=== PATIENT | female | born 1980 | race Caucasian/White ===

== ENCOUNTER 2017-01-27 05:12 | Emergency (ER) | payer BC ==
[2017-01-27] MEDS ORDERED: Sodium Chloride 0.9% 10 ML Syringe FLUSH PRN (05:33)
--- NOTE | 2017-01-27 05:33 | EDM.PDOC ---
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 She states she was in the ER in [place] on Tuesday for the same reason with mostly negative results from ultrasound for any acute causation of the above mentioned bleeding. 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 She has been on Xarelto since. She is not on any control. Menstrual cycle is typically pretty bloody and irregular. She does state she was dizzy this morning when she awakened. Her phys asst is aware that this happened on Tuesday. Again, similar symptomology to her prior episode. Does appear anxious. Stable vital signs and oxygenation. No complaints of abdominal pain. Recently started on methotrexate for psoriatic arthritis, with complaints of diarrhea. Denies any bloody stool. Symptom Onset Date: 01/27/17 Location: Reports: vaginal Quality: Denies: ache, burning, cramping Severity: mild Associated Symptoms: Reports: vaginal bleeding, diarrhea (recently started on methotrexate) - Related Data Allergies/ADRs: Allergies Allergy/AdvReac Type Severity Reaction Status Date / Time adhesive Allergy Rash Verified 01/27/17 05:23 Home Meds: Home Meds Calcium Carbonate/Vitamin D3 [Calcium Carb 500 MG] 1 tab PO DAILY 07/02/16 [ History] Hydrocodone/Acetaminophen [[place] 10-325] 1 tab PO Q6H PRN 07/02/16 [History] QUEtiapine [SEROquel] 25 mg PO BID@07/02/16 [History] QUEtiapine [SEROquel] 100 mg PO BEDTIME 07/02/16 [History] Rivaroxaban [Xarelto] 20 mg PO DAILY 07/02/16 [History] Venlafaxine HCl [Venlafaxine ER] 225 mg PO DAILY 07/02/16 [History] ED ROS GENERAL - Review of Systems Review Of Systems: See Below Constitutional: Reports: no symptoms HEENT: Reports: No symptoms Respiratory: Reports: no symptoms Cardiovascular: Reports: No symptoms Endocrine: Reports: no symptoms GI/Abdominal: Reports: No symptoms : Reports: irregular menses (high flow) Musculoskeletal: Reports: no symptoms Skin: Reports: no symptoms Neurological: Reports: no symptoms Psychiatric: Reports: No symptoms Hematologic/Lymphatic: Reports: easy bleeding Immunologic: Reports: no symptoms ED EXAM, RENAL/ - Physical Exam Exam: See Below Exam Limited By: No limitations General Appearance: alert, WD/WN, no apparent distress Eye Exam: bilateral eye: EOMI, PERRL Respiratory/Chest: no respiratory distress, lungs clear, normal breath sounds, no accessory muscle use Cardiovascular: normal peripheral pulses, regular rate, rhythm, no edema, no gallop GI/Abdominal: normal bowel sounds, soft, non tender, no organomegaly, no distention Back Exam: normal inspection Extremities: normal inspection, normal range of motion, non-tender, no pedal edema, normal capillary refill Neurological: alert, oriented, CN II-XII intact, normal cognition, normal gait, normal reflexes, no motor/sensory deficits Psychiatric: normal affect, normal mood Skin Exam: Warm, Dry, Intact, Normal color Lymphatic: no adenopathy Course - Vital Signs Last Recorded V/S: Last Vital Signs Temp 36.5 C 01/27/17 05:13 Pulse 72 01/27/17 05:13 Resp 24 H 01/27/17 05:13 BP 137/92 H 01/27/17 05:13 Pulse Ox 99 01/27/17 05:13 - Orders/Labs/Meds Orders: Active Orders 24 hr Category Date Time Status CBC WITH AUTO DIFF [HEME] Stat Lab 01/27/17 05:22 Ordered HCG QUALITATIVE,URINE [URCHEM] Stat Lab 01/27/17 05:22 Uncollected Departure - Departure Time of Disposition: 06:31 Disposition: Home, Self-Care 01 Clinical Impression: Vaginal bleeding Instructions: Abnormal Uterine Bleeding, Anemia, Nonspecific Forms: ED Department Discharge Additional Instructions: Please make an appointment with your SIGHTSEEING GUIDE to address possible solutions to your abnormal flow menstrual cycle. Your diarrhea is likely being caused by your recent start of methotrexate. All of your labs today did come back normal. Your Hemoglobin this AM was 13.5. HCG which is a marker is negative. Make sure to come back in to the ER if you continue to have large amounts of abnormal bleeding or show signs of low hemoglobin which can include dizziness and light headedness, fast heart rate, being short of breath. Please call with any questions or concerns - Problem List & Annotations (1) Vaginal bleeding SNOMED Code(s): 658469026, [id number] Code(s): N93.9 - ABNORMAL UTERINE AND VAGINAL BLEEDING, UNSPECIFIED Status : Acute Priority: Low Current Visit: Yes - Problem List Review Problem List Initiated/Reviewed/Updated: Yes - My Orders Last 24 Hours: My Active Orders 01/27/17 05:22 CBC WITH AUTO DIFF [HEME] Stat HCG QUALITATIVE,URINE [URCHEM] Stat - Assessment/Plan Last 24 Hours: My Active Orders 01/27/17 05:22 CBC WITH AUTO DIFF [HEME] Stat HCG QUALITATIVE,URINE [URCHEM] Stat Assessment:: abnormal vaginal bleeding Plan: Please make an appointment with your SIGHTSEEING GUIDE to address possible solutions to your abnormal flow menstrual cycle. Your diarrhea is likely being caused by your recent start of methotrexate. All of your labs today did come back normal. Your Hemoglobin this AM was 13.5. HCG which is a marker is negative. Make sure to come back in to the ER if you continue to have large amounts of abnormal bleeding or show signs of low hemoglobin which can include dizziness and light headedness, fast heart rate, being short of breath. Please call with any questions or concerns
[2017-01-27] MEDS ORDERED: Sodium Chloride 0.9% 1,000 ML IV ONE ×2 (05:55→06:10)
[2017-01-27 06:26] VITALS: BP 118/76
== END 2017-01-27 06:40 | disposition home or self-care (01) ==
LOC: VM.ED 05:12
DX: N93.9 Abnormal uterine and vaginal bleeding, unspecified (principal); Z79.899 Other long term (current) drug therapy
CPT/HCPCS: 36415; 81001; 81025; 85025; 85610; 99284; J7030

== ENCOUNTER 2017-02-22 22:56 | Emergency (ER) | payer BC ==
[2017-02-22] MEDS ORDERED: HYDROmorphone 1 MG/ML Syringe IVPUSH ONE ×2 (23:21→23:55)
[2017-02-22] MEDS ORDERED: Ondansetron 4 MG/2 ML SDV IM ONE (23:21)
[2017-02-22] MEDS ORDERED: Ondansetron 4 MG/2 ML SDV IVPUSH ONE (23:31)
[2017-02-22 23:49] LABS: CHLORIDE,CL 105 mmol/L (98-107); SODIUM,NA 141 mmol/L (136-145)
--- NOTE | 2017-02-22 23:53 | EDM.PDOC ---
ED HPI GI/ABDOMINAL - General Chief Complaint: Abdominal Pain Stated Complaint: Post-op Abdominal Pain Time Seen by Provider: 02/22/17 23:05 Source of Information: Reports: Patient History Limitations: Reports: No limitations - History of Present Illness INITIAL COMMENTS - FREE TEXT/NARRATIVE: Patient states she had a laparoscopic hysterectomy yesterday. She was discharged home after the surgery was complete without any complications. Today she started having increased abdominal pain. She started becoming able to burp and pass gas and urinate today. She denies any fever, shortness breath, chest pain, chills , changes in urination, and vaginal discharge. Her child accidentally fell and landed on her abdomen. She is concerned that stitches may have ruptured inside her abdomen causing her current pain. Symptom Onset Date: 02/22/17 Symptom Onset Time: 10:00 Timing/Duration: Reports: Getting worse Location: generalized Quality: Reports: ache, fullness, stabbing Severity: moderate Improves with: Reports: lying down Worsens with: Reports: urinating, palpation, sitting up Associated Symptoms (-Female): Reports: denies other symptoms Other Treatments [employer]: heat and cold packs - Related Data Allergies/ADRs: Allergies Allergy/AdvReac Type Severity Reaction Status Date / Time adhesive Allergy Rash Verified 02/22/17 23:47 Home Meds: Home Meds Calcium Carbonate/Vitamin D3 [Calcium Carb 500 MG] 1 tab PO DAILY 07/02/16 [ History] QUEtiapine [SEROquel] 25 mg PO BID@08,16 07/02/16 [History] QUEtiapine [SEROquel] 100 mg PO BEDTIME 07/02/16 [History] Rivaroxaban [Xarelto] 20 mg PO DAILY 07/02/16 [History] Venlafaxine HCl [Venlafaxine ER] 225 mg PO DAILY 07/02/16 [History] Hydrocodone/Acetaminophen [Hydrocodon-Acetaminophen 5-325] 2 each PO Q4H PRN [History] Past Medical History Respiratory History: Reports: PE 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 ED EXAM, GI/ABD - Physical Exam Exam: See Below Exam Limited By: No limitations General Appearance: alert, WD/WN, no apparent distress Eyes: bilateral: normal appearance, EOMI Head: atraumatic, normocephalic Neck: normal inspection, supple, non-tender, full range of motion Respiratory/Chest: no respiratory distress, lungs clear, normal breath sounds, no accessory muscle use, chest non-tender Cardiovascular: normal peripheral pulses, regular rate, rhythm, no edema, no gallop, no JVD, no murmur, no rub GI/Abdominal: normal bowel sounds, soft, tenderness (Generalized tenderness with light palpation. Steri-Strips and sutures in the areas of trocar sites intact there is no blood or shadowing on the dressings.), guarding Back Exam: normal inspection, full range of motion, NT Extremities: normal inspection, normal range of motion, non-tender, normal capillary refill, no pedal edema Neurological: alert, oriented, CN II-XII intact, normal cognition, normal gait, normal reflexes, no motor/sensory deficits Psychiatric: normal affect, normal mood Skin Exam: Warm, Dry, Intact, Normal color, No rash Lymphatic: no adenopathy Departure - Departure Time of Disposition: 00:00 Disposition: Home, Self-Care 01 Condition: good Clinical Impression: Postoperative abdominal pain - Assessment/Plan Assessment:: Postoperative abdominal pain 24 hours after a prescribed hysterectomy Plan: Continue home medication and pain meds. Followup with the surgeon who completed their operation if you continue to have severe abdominal pain and distention.
[2017-02-22 23:55] VITALS: BP 127/75
== END 2017-02-22 23:59 | disposition home or self-care (01) ==
LOC: VM.ED 22:56
DX: G89.18 Other acute postprocedural pain (principal); R10.9 Unspecified abdominal pain; K21.9 Gastro-esophageal reflux disease without esophagitis; F41.9 Anxiety disorder, unspecified; F32.9 Major depressive disorder, single episode, unspecified; Z79.899 Other long term (current) drug therapy
CPT/HCPCS: 80048; 85025; 96374; 96375; 99283; J1170; J2405

== ENCOUNTER 2017-02-28 12:21 | Emergency (ER) | payer BC ==
[2017-02-28 12:35] VITALS: BP 127/51
--- NOTE | 2017-02-28 12:42 | EDM.PDOC ---
ED HPI GI/ABDOMINAL - General Chief Complaint: Abdominal Pain Stated Complaint: constipation Time Seen by Provider: 02/28/17 12:32 Source of Information: Reports: Patient History Limitations: Reports: No limitations - History of Present Illness INITIAL COMMENTS - FREE TEXT/NARRATIVE: Patient had laparoscopic hysterectomy last Tuesday02/21/17 and has had one small , hard bowel movement on Tuesday. She has been ambulating, limiting her hydrocodone use. She states she is drinking 4-6 20 oz. water bottles daily as well. She admits to some shortness of breath due to the pressure of her abdomen which is distended. Denies chest pain, nausea, emesis. Denies smoking , drug, or alcohol use. Prior medical history does include pulmonary emboli and use of xarelto. Symptom Onset Date: 02/22/17 Timing/Duration: Reports: Gradual onset Location: generalized Quality: Reports: fullness Worsens with: Reports: palpation Context: Reports: recent surgery Associated Symptoms (-Female): Reports: constipation. Denies: chest pain, diarrhea, bloody stools, fever/chills, nausea/vomiting - Related Data Allergies/ADRs: Allergies Allergy/AdvReac Type Severity Reaction Status Date / Time adhesive Allergy Rash Verified 02/28/17 12:38 Home Meds: Home Meds Calcium Carbonate/Vitamin D3 [Calcium Carb 500 MG] 1 tab PO DAILY 07/02/16 [ History] QUEtiapine [SEROquel] 25 mg PO BID@,16 07/02/16 [History] QUEtiapine [SEROquel] 100 mg PO BEDTIME 07/02/16 [History] Rivaroxaban [Xarelto] 20 mg PO DAILY 07/02/16 [History] Venlafaxine HCl [Venlafaxine ER] 225 mg PO DAILY 07/02/16 [History] Hydrocodone/Acetaminophen [Hydrocodon-Acetaminophen 5-325] 2 each PO Q4H PRN [History] Past Medical History Respiratory History: Reports: PE 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 ED EXAM, GI/ABD - Physical Exam Exam: See Below Exam Limited By: No limitations General Appearance: alert, WD/WN, mild distress Eyes: bilateral: EOMI Head: atraumatic, normocephalic Neck: normal inspection Respiratory/Chest: no respiratory distress, lungs clear, normal breath sounds, no accessory muscle use, chest non-tender Cardiovascular: normal peripheral pulses, regular rate, rhythm, no edema, no gallop GI/Abdominal: normal bowel sounds, tenderness, distention Extremities: normal inspection Neurological: alert, oriented, CN II-XII intact Psychiatric: normal affect, normal mood Skin Exam: Warm, Dry, Intact, Ecchymosis (around umbilicus), Wound/incision ( umbilical, left and right inguinal puncture sites are clean, dry, intact, and approximated.) Course - Vital Signs Last Recorded V/S: Last Vital Signs Temp 37.2 C 02/28/17 12:32 Pulse 115 H 02/28/17 12:32 Resp 28 H 02/28/17 12:32 BP 127/51 L 02/28/17 12:32 Pulse Ox 98 02/28/17 12:32 - Orders/Labs/Meds Orders: Active Orders 24 hr Category Date Time Status Abdomen 2V AP Flat Upright [CR] Stat Exams 02/28/17 12:33 Taken Meds: Medications Discontinued Medications Generic Name Dose Route Start Last Admin Trade Name Franklinq PRN Reason Stop Dose Admin Magnesium Citrate 296 ml 02/28/17 13:20 02/28/17 13:34 Citrate Of Magnesia PO 02/28/17 13:21 296 ml ONETIME ONE Administration Senna 17.2 mg 02/28/17 14:08 02/28/17 14:22 Senna PO 02/28/17 14:09 17.2 mg ONETIME ONE Administration Sodium Biphosphate/Sodium Phosphate 133 ml 02/28/17 13:19 02/28/17 13:51 Fleet Enema RECTAL 02/28/17 13:20 1 each ONETIME ONE Administration - Re-Assessments/Exams Free Text/Narrative Re-Assessment/Exam: 02/28/17 13:24 Review of x-ray shows moderate colonic retention, treated with fleets and mag citrate Departure - Departure Time of Disposition: 14:40 Disposition: Home, Self-Care 01 Condition: good Clinical Impression: Constipation due to opioid therapy Instructions: Constipation, Adult, [id number], Pain Medicine Instructions, [id number] Referrals: PCP,None [Primary Care Provider] - Additional Instructions: Continue to try to stay well hydrated and limit the use of your pain medications as you are able. You should also add Senna or Colace/Docusate to your bowel protocol. Take 1 table twice daily Follow up with your surgeon if you continue to have constipation and distention issues. Please follow up with PCP and surgeon as needed Call with any questions or concerns. - Problem List & Annotations (1) Constipation due to opioid therapy SNOMED Code(s): 176432254657732 Code(s): K59.03 - DRUG INDUCED CONSTIPATION; T40.2X5A - ADVERSE EFFECT OF OTHER OPIOIDS, INITIAL ENCOUNTER Status: Acute Priority: Low Current Visit : Yes - Problem List Review Problem List Initiated/Reviewed/Updated: Yes - My Orders Last 24 Hours: My Active Orders 02/28/17 12:33 Abdomen 2V AP Flat Upright [CR] Stat - Assessment/Plan Last 24 Hours: My Active Orders 02/28/17 12:33 Abdomen 2V AP Flat Upright [CR] Stat Assessment:: constipation secondary to opioid use post operatively Plan: Continue to try to stay well hydrated and limit the use of your pain medications as you are able. You should also add Senna or Colace/Docusate to your bowel protocol. Take 1 table twice daily Follow up with your surgeon if you continue to have constipation and distention issues. Please follow up with PCP and surgeon as needed Call with any questions or concerns.
[2017-02-28] MEDS ORDERED: Sodium Phosphate,Monobasic/Sodium Phosphate,Dibasic Enema 133 ML Bottle RECTAL ONE (13:19)
[2017-02-28] MEDS ORDERED: Magnesium Citrate Solution 296 ML Bottle PO ONE (13:20)
[2017-02-28] MEDS ORDERED: Sennosides 8.6 MG Tab PO ONE (14:08)
== END 2017-02-28 14:30 | disposition home or self-care (01) ==
LOC: VM.ED 12:21
DX: K59.03 Drug induced constipation (principal); K21.9 Gastro-esophageal reflux disease without esophagitis; F41.9 Anxiety disorder, unspecified; F32.9 Major depressive disorder, single episode, unspecified; Z91.09 Other allergy status, other than to drugs and biological substances; Z79.899 Other long term (current) drug therapy; Z90.710 Acquired absence of both cervix and uterus
CPT/HCPCS: 74020; 99283; A9270